=== PATIENT | male | born 1990 | race Two or more races ===

== ENCOUNTER 2021-08-05 16:09 | Observation (INO) | payer BC ==
[2021-08-05 16:24] VITALS: BMI 23.6
[2021-08-05] MEDS ORDERED: SILVER SULFADIAZINE 1% TOP CREAM 50 GM JAR TP ONE ×3 (18:25→18:46)
[2021-08-05] MEDS ORDERED: AMPICILLIN NA/SULBACTAM NA 3 GM in SODIUM CHLORIDE 100 ML IVPB ONE (18:30)
[2021-08-05] MEDS ORDERED: morphine CARPU-JECT 2 MG/1 ML DISP.SYRIN IVPUSH ONE (18:43)
[2021-08-05] MEDS ORDERED: LIDOCAINE HCL 1%, 10 MG/ML (20ML VIAL) ONE (18:46)
[2021-08-05] MEDS ORDERED: LIDOCAINE HCL 1%, 10 MG/ML (50 mL VIAL) SQ ONE (19:08)
[2021-08-05] MEDS ORDERED: MORPHINE SULFATE 2 MG/ML VIAL ONE (19:37)
[2021-08-05 21:11] LABS: BASO % 1.2 % (0-2.0); HEMATOCRIT 44.9 % (35.4-49); HEMOGLOBIN 15.3 GM/dL (11.7-16.9); LYMPH % 13.2 % (8-40); MCH 30.9 pg (25.7-33.7); MEAN CELL VOLUME 90.9 fl (80-96); MEAN PLT VOLUME 7.7 fl (7.5-11.1); MONO % 4.4 % (3.8-10.2); NEUT % 80.2 % (42.8-82.8); PLATELET COUNT 211 10^3/uL (134-434); RBC 4.94 M/mm3 (4.00-5.60); RDW 14.1 % (11.9-15.9); WHITE BLOOD COUNT 9.5 K/mm3 (4.0-10.0)
[2021-08-05 21:38] LABS: ALBUMIN 4.3 g/dl (3.4-5.0); CALCIUM 9.2 mg/dL (8.5-10.1)
[2021-08-05 21:42] LABS: CREATININE 1.2 mg/dL (0.55-1.3)
[2021-08-05 21:43] LABS: BILIRUBIN,TOTAL 0.3 mg/dL (0.2-1); TOT PROT 7.6 g/dl (6.4-8.2)
[2021-08-06] MEDS ORDERED: SODIUM CHLORIDE 1,000 ML IV SCH (00:01)
[2021-08-06] MEDS ORDERED: traMADol HCL 50 MG TABLET ONE (01:56)
[2021-08-06] MEDS: traMADol HCL 50 MG TABLET PO PRN ×3 (01:58→15:46)
[2021-08-06] MEDS ORDERED: ACETAMINOPHEN 325 MG TABLET (FP) PO PRN (02:00)
[2021-08-06] MEDS: AMPICILLIN NA/SULBACTAM NA 3 GM in SODIUM CHLORIDE 100 ML IVPB SCH ×4 (03:21→21:39)
[2021-08-06] MEDS ORDERED: SODIUM CHLORIDE 100 ML IVPB ONE ×3 (08:19→21:14)
[2021-08-06] MEDS ORDERED: AMPICILLIN NA/SULBACTAM NA 3 GM VIAL ONE ×3 (08:19→21:14)
[2021-08-06 08:50] LABS: BASO % 1.2 % (0-2.0); EOS % 2.1 % (0-4.5); HEMATOCRIT 44.3 % (35.4-49); HEMOGLOBIN 15.2 GM/dL (11.7-16.9); LYMPH % 22.7 % (8-40); MCH 31.3 pg (25.7-33.7); MCHC 34.2 g/dl (32.0-35.9); MEAN CELL VOLUME 91.5 fl (80-96); MEAN PLT VOLUME 7.8 fl (7.5-11.1); MONO % 6.4 % (3.8-10.2); NEUT % 67.6 % (42.8-82.8); PLATELET COUNT 200 10^3/uL (134-434); RBC 4.84 M/mm3 (4.00-5.60); RDW 13.9 % (11.9-15.9); WHITE BLOOD COUNT 7.6 K/mm3 (4.0-10.0)
[2021-08-06 09:14] LABS: BLOOD UREA NITROGEN 16.2 mg/dL (7-18); CALCIUM 8.8 mg/dL (8.5-10.1)
[2021-08-06] MEDS: IBUPROFEN 400 MG TABLET (FP) PO PRN (10:24)
[2021-08-06] MEDS ORDERED: LIDOCAINE HCL 5% TOP OINTMENT 50 GM TUBE TP ONE (14:15)
[2021-08-06] MEDS ORDERED: PT OWN MED DRAWER 7, Y5N ONE (14:49)
[2021-08-07] MEDS: traMADol HCL 50 MG TABLET PO PRN (01:01)
[2021-08-07] MEDS ORDERED: AMPICILLIN NA/SULBACTAM NA 3 GM VIAL ONE (02:37)
[2021-08-07] MEDS ORDERED: SODIUM CHLORIDE 100 ML IVPB ONE (02:37)
[2021-08-07] MEDS: AMPICILLIN NA/SULBACTAM NA 3 GM in SODIUM CHLORIDE 100 ML IVPB SCH ×2 (02:45→10:27)
[2021-08-07] MEDS: IBUPROFEN 400 MG TABLET (FP) PO PRN (10:19)
[2021-08-07 14:58] VITALS: BP 122/69; PULSE 49; TEMP 98.6
[2021-08-08] MEDS ORDERED: SILVER SULFADIAZINE 1% TOP CREAM 50 GM JAR TP SCH (10:00)
== END 2021-08-07 18:26 | disposition home or self-care (01) ==
LOC: JERFT 16:09 → JERBED 19:26 → UNDOADMOB 19:26 → INTOOBSV 19:26 → J6S 08-06 03:33 → JERBED 08-06 03:33 → J6S 08-06 13:51 → JERBED 08-06 13:51
PROVIDERS: ADMIT Internal Medicine; ATTEND Internal Medicine
PROC: 0HBGXZZ Excision of Left Hand Skin, External Approach (ICD-10-PCS; principal; 2021-08-06)
PROC: 3E03329 Introduction of Other Anti-infective into Peripheral Vein, Percutaneous Approach (ICD-10-PCS; 2021-08-06)
PROC: 3E033NZ Introduction of Analgesics, Hypnotics, Sedatives into Peripheral Vein, Percutaneous Approach (ICD-10-PCS; 2021-08-06)
DX: S61.211A Laceration without foreign body of left index finger without damage to nail, initial encounter (principal); W54.0XXA Bitten by dog, initial encounter; Y93.89 Activity, other specified; Y92.89 Other specified places as the place of occurrence of the external cause; Z91.018 Allergy to other foods; Z88.8 Allergy status to other drugs, medicaments and biological substances
CPT/HCPCS: 36415; 73140-TC-LT-FY; 80048; 80053; 85025; 96365; 96375; 97597; 99285-25; C9803; G0378; U0003; U0005

== ENCOUNTER 2023-04-24 08:53 | Emergency (ER) | payer OTHER, BC ==
[2023-04-24 09:06] VITALS: BP 138/66; PULSE 52; RESP 17; TEMP 98.4; BMI 28.1
[2023-04-24] MEDS ORDERED: ACETAMINOPHEN 500 MG TABLET (FP) PO ONE (09:42)
[2023-04-24] MEDS ORDERED: IBUPROFEN 600 MG TABLET (FP) PO ONE ×2 (09:42→09:43)
[2023-04-24] MEDS ORDERED: ACETAMINOPHEN 325 MG TABLET (FP) ONE (09:43)
== END 2023-04-24 10:33 | disposition home or self-care (01) ==
LOC: JERFT 08:53
DX: R22.31 Localized swelling, mass and lump, right upper limb (principal); M79.641 Pain in right hand; S62.340A Nondisplaced fracture of base of second metacarpal bone, right hand, initial encounter for closed fracture; W22.8XXA Striking against or struck by other objects, initial encounter; Y99.0 Civilian activity done for income or pay
CPT/HCPCS: 73130-TC-RT-FY; 99283-25